=== PATIENT | female | born 1980 | race Caucasian/White ===

== ENCOUNTER 2020-05-16 16:16 | Outpatient (REF) | payer OTHER, SELFPAY | END 2020-05-16 16:17 | disposition home or self-care (01) | LOC: HO.LAB 16:16 | PROVIDERS: Visit Provider Internal Medicine | DX: Z20.828 Contact with and (suspected) exposure to other viral communicable diseases (principal) | CPT/HCPCS: C9803; U0003 ==

== ENCOUNTER → 2021-08-06 11:03 | Outpatient (BNVA) | payer SELFPAY | PROVIDERS: Visit Provider Internal Medicine | DX: Z02.79 Encounter for issue of other medical certificate (principal) ==

== ENCOUNTER 2023-03-30 09:12 | Outpatient (AMB) | payer OTHER, SELFPAY ==
--- NOTE | 2023-03-30 09:18 | AM.OFFWIN_ITS ---
Intake Vital Signs 03/30/23 09:24 Height 5 ft 4 in Weight 182 lb BMI 31.2 BP 114/62 Blood Pressure Location Rt brachial Position Sitting Pulse 69 Pulse Source Pulse Oximeter Temp 97.8 F Temp Source Temporal Artery Scan Pulse Oximetry (%) 100 Oxygen Delivery Method Room Air Intake Visit Reasons: EP, congestion, cough [phone] Intake Note: Pt is here c/o chest congestion and bad cough for four days. Patient Tobacco Use Status: Never used Tobacco Allergies No Known Allergies Allergy (Verified 03/30/23 09:18) Do you need a note to return to daycare/school/sports/work: Yes HPI EP, congestion, cough [phone] HPI Details 42-year-old [facility]. Reports a 4 day history of cough with yellow sputum, nasal congestion, and body aches/chills. She reports that she was in [place] this past weekend, in very large crowds. She denies fever, shortness of breath, wheezing. She took a COVID test at home which was inconclusive. [facility], [facility] Social History Patient Tobacco Use Status: Never used Tobacco Review of Systems Const All systems reviewed & are unremarkable except as noted in HPI and below Physical Exam Const General: cooperative, healthy appearing and no acute distress HEENT Head: Yes normal to inspection Ears: hearing grossly normal bilaterally General nose exam: Normal external nose present and Nasal discharge present mucoid Face and sinus: Yes normal facial exam Mouth: Normal oral and palatal mucosa present Neck Neck: Yes no lymphadenopathy Resp Effort & Inspection: normal respiratory effort and able to speak in complete sentences Auscultation: clear to auscultation bilaterally Cardio Jugular venous distension: no JVD Palpation: normal PMI Rate: regular rate Rhythm: regular rhythm Skin General skin exam: no rashes or lesions noted Extrem General: Yes capillary refill normal Psych Appearance: grossly normal Mental Status: mental status grossly normal Speech and movement: Normal speech and movement present Assessment & Plan Assessment & Plan (1) Upper respiratory infection: Code(s): J06.9 - Acute upper respiratory infection, unspecified Qualifiers: URI type: unspecified URI Qualified Code(s): J06.9 - Acute upper respi ratory infection, unspecified Plan: Symptoms consistent with viral URI. I discussed this with patient. Viral swab for COVID/flu/RS be obtained, and patient aware she will be notified with results once these are available. We discussed that at this time, there are not indications for antibiotic use, which she understands. We reviewed conservative measures for symptomatic treatment, including Tylenol/Motrin or [id number] cold/flu products as needed. Recommended increased hydration and rest, I provided her with a work note. Advised to return to the clinic if she develops new or worsening symptoms, or if she does not slowly improve with time and conservative measures. She verbalizes understanding and agrees to plan. Orders: Orders SARS-CoV2/FLU/RSV Today J06.9 - Acute upper respiratory infection, unspecified Coding Level of Care Code Est Pt Level 3 (48288) Diagnoses Upper respiratory tract infection, unspecified type J06.9 URI type: unspecified URI
[2023-03-30 09:24] VITALS: BP 114/62; PULSE 69; TEMP 36.6; O2SAT 100; BMI 31.2
== END 2023-03-30 09:43 | disposition home or self-care (01) ==
PROVIDERS: Visit Provider Nurse Practitioner Family
DX: J06.9 Acute upper respiratory infection, unspecified (principal)
CPT/HCPCS: 99213

== ENCOUNTER 2023-03-30 09:29 | Outpatient (REF) | payer OTHER, SELFPAY ==
[2023-03-30 12:26] LABS: Influenza A PCR NEGATIVE (Negative); Influenza B PCR NEGATIVE (Negative); Resp Syncy Virus RNA Qual PCR NEGATIVE (Negative); SARS COV2 PCR INHOUSE NEGATIVE (Negative)
== END 2023-03-30 09:30 | disposition home or self-care (01) ==
LOC: HO.LAB 09:29
PROVIDERS: Visit Provider Nurse Practitioner Family
DX: J06.9 Acute upper respiratory infection, unspecified (principal); Z11.52 Encounter for screening for COVID-19
CPT/HCPCS: 0241U

== ENCOUNTER → 2023-08-17 09:15 | Outpatient (BNVA) | payer SELFPAY | PROVIDERS: Visit Provider Physician Assistant | DX: Z02.79 Encounter for issue of other medical certificate (principal) ==

== ENCOUNTER 2023-09-05 08:16 | Outpatient (AMB) | payer OTHER, SELFPAY ==
[2023-09-05 08:49] VITALS: BP 116/80; PULSE 71; TEMP 36.3; O2SAT 98; BMI 32.1
--- NOTE | 2023-09-05 08:49 | AM.OFFWIN_ITS ---
Intake Vital Signs 09/05/23 08:49 Height 5 ft 4 in Weight 187 lb BMI 32.1 BP 116/80 Blood Pressure Location Lt brachial Position Sitting Pulse 71 Pulse Source Pulse Oximeter Temp 97.3 F Temp Source Temporal Artery Scan Pulse Oximetry (%) 98 Oxygen Delivery Method Room Air Intake Visit Reasons: EP headache sinus chills smell/taste gone Intake Note: pt is here today for headache sinus chills smell and taste gone started 11 days ago Patient Tobacco Use Status: Never used Tobacco Allergies No Known Allergies Allergy (Verified 09/05/23 08:59) Do you need a note to return to daycare/school/sports/work: Yes HPI HPI Comments History of Present Illness Details Patient presents to the walk in for 11 days sinus congestion reports over last couple of days sinus pressure has improved, now with cough She also endorses loss of smell or taste for last 11 days. Previously took COVID test which came up negative. Family sick with flu symptoms but none have had cough/congestion Denies fever, chest pain, shortness of breath, palpitations, syncope Denies headache, ear pain, sore throat. Has been taking OTC medications with minimal improvement Called out sick from work, requesting [facility] note [facility] Social History Patient Tobacco Use Status: Never used Tobacco Review of Systems Const All systems reviewed & are unremarkable except as noted in HPI and below Physical Exam Vital Signs: Last Vital Signs Temp 97.3 F 09/05/23 08:49 Pulse 71 09/05/23 08:49 BP 116/80 09/05/23 08:49 Pulse Ox 98 09/05/23 08:49 Oxygen Delivery Method Room Air 09/05/23 08:49 BMI result Body Mass Index 32.1 General: awake, alert, oriented. Answers questions appropriately. Fully engaged in examination. Skin: warm, dry, intact HEENT: TMs intact bilaterally, no redness. Posterior pharynx without erythema or exudate. Sclera without icterus or injection. Cardiac: External chest normal in appearance. Respiratory: + dry cough. LSCTAB. Abdomen: without gross distension. Neurological: Oriented to person, place, time and situation. Thought process intact. Psychiatric: Appropriate mood and affect. Good judgment and insight. Assessment & Plan Assessment & Plan (1) URI (upper respiratory infection): Code(s): J06.9 - Acute upper respiratory infection, unspecified Plan URI, no abx warranted. SARS-CoV2/FLU/RSV swab collected, results pending. Patient aware she will be called with results. Benzonatate 100mg po bid as needed Rest, drink plenty of fluids, tylenol or motrin as needed. Work note provided Follow up with pcp or in clinic for any new or worsening symptoms. Go to ER for shortness of breath, chest pain, palpitations, weakness, dizziness. Orders: Orders SARS-CoV2/FLU/RSV Today J06.9 - Acute upper respiratory infection, unspecified Medications: New benzonatate 100 mg PO BID PRN 20 caps 0RF cough Coding Level of Care Code Est Pt Level 3 (59019) Diagnoses URI (upper respiratory infection) J06.9
== END 2023-09-05 10:32 | disposition home or self-care (01) ==
PROVIDERS: Visit Provider Registered Nurse Emergency
DX: J06.9 Acute upper respiratory infection, unspecified (principal)
CPT/HCPCS: 99213

== ENCOUNTER 2023-09-05 09:32 | Outpatient (REF) | payer OTHER, SELFPAY ==
[2023-09-05 11:31] LABS: Influenza A PCR NEGATIVE (Negative); Influenza B PCR NEGATIVE (Negative); Resp Syncy Virus RNA Qual PCR NEGATIVE (Negative); SARS COV2 PCR INHOUSE NEGATIVE (Negative)
== END 2023-09-05 09:33 | disposition home or self-care (01) ==
LOC: HO.LAB 09:32
PROVIDERS: Visit Provider Registered Nurse Emergency
DX: J06.9 Acute upper respiratory infection, unspecified (principal)
CPT/HCPCS: 0241U

== ENCOUNTER 2023-09-22 09:04 | Outpatient (AMB) | payer OTHER, SELFPAY ==
[2023-09-22 10:03] VITALS: BP 130/80; PULSE 61; TEMP 36.4; O2SAT 99; BMI 32.1
--- NOTE | 2023-09-22 10:03 | AM.OFFWIN_ITS ---
Intake Vital Signs 09/22/23 10:03 Height 5 ft 4 in Weight 187 lb BMI 32.1 BP 130/80 Blood Pressure Location Lt brachial Position Sitting Pulse 61 Pulse Source Pulse Oximeter Temp 97.5 F Temp Source Temporal Artery Scan Pulse Oximetry (%) 99 Oxygen Delivery Method Room Air Intake Visit Reasons: EP LT ear blocked Intake Note: pt is here today for lft ear blocked started 1 weeks ago Patient Tobacco Use Status: Never used Tobacco Allergies No Known Allergies Allergy (Verified 09/22/23 10:08) Do you need a note to return to daycare/school/sports/work: No HPI HPI Comments History of Present Illness Details 43 y/o female patient who presents to [facility] in clinic with c/o left ear blockage x 1 week. Recent URI symptoms, since resolved. [facility] Social History Patient Tobacco Use Status: Never used Tobacco Review of Systems Const All systems reviewed & are unremarkable except as noted in HPI and below Physical Exam Vital Signs: Last Vital Signs Temp 97.5 F 09/22/23 10:03 Pulse 61 09/22/23 10:03 BP 130/80 09/22/23 10:03 Pulse Ox 99 09/22/23 10:03 Oxygen Delivery Method Room Air 09/22/23 10:03 BMI result Body Mass Index 32.1 Const General: comfortable and no acute distress Orientation/consciousness: patient oriented x3 HEENT Head: Yes normocephalic Ears: external ears normal and TM abnormal bulging on the left, erythematous on the left and with fluid behind the TM bilateral; not perforated and not retracted General nose exam: Abnormal mucous membranes and turbinates present pale and Nasal discharge present Face and sinus: Yes sinuses nontender Mouth: moist mucous membranes Throat: Yes posterior oropharynx normal Resp Effort & Inspection: normal respiratory effort Auscultation: clear to auscultation bilaterally Cardio Rate: regular rate Rhythm: regular rhythm Neuro General: patient oriented x3 Assessment & Plan Assessment & Plan (1) Ear pain, left: Code(s): H92.02 - Otalgia, left ear Plan: - Take Decongestants as directed - Acetaminophen for pain relief. Medications: New ibuprofen-phenylephrine 200-10 mg (Sudafed PE Head Congestion-Pain) 1 tab PO Q4- 6H PRN 30 tabs 0RF uri symptoms H69.90 - Unspecified Eustachian tube disorder, unspecified ear, H92.02 - Otalgia, left ear cetirizine (Zyrtec) 10 mg PO DAILY PRN 30 tabs 0RF allergy symptoms H69.90 - Unspecified Eustachian tube disorder, unspecified ear, H92.02 - Otalgia, left ear Coding Level of Care Code Est Pt Level 3 (80905) Diagnoses Ear pain, left H92.02 Time Spent (min) 15
== END 2023-09-22 11:22 | disposition home or self-care (01) ==
PROVIDERS: Visit Provider Nurse Practitioner Family
DX: H92.02 Otalgia, left ear (principal)
CPT/HCPCS: 99213